=== PATIENT | female | born 1960 | race Caucasian/White ===

== ENCOUNTER → 2016-06-04 | Outpatient (CLI) | payer BC ==
[2016-05-10 16:00] VITALS: BP 124/75
[~2016-06-04] MED LIST: AMLO10TA4 PO; AMLO5TAB4 PO; AMOX875T PO; COLE1TAB2 PO; ESTR0.5T PO; ESTR26GE TD; FAMO20TA5 PO; FERR325T31 PO; GABA-586 PO; HYDR12.58 PO; IBUP-1060 PO; LANS30CA PO; LEVO750T31 PO; MTH/1CAP PO; PHEN-373 PO; POTA20TA12 PO; PREG75CA PO; SOTA150V PO; SOTA80TA PO
--- NOTE | 2016-06-04 18:11 | KCIC ---
Bilateral digital screening mammograms with CAD: HISTORY COMPARISON Comparison is made to previous studies dated 05/23/2015 and 05/05/2014. FINDINGS Breast density category B. The skin and nipples show no abnormalities. No abnormal lymph nodes are seen in the axilla. The breast parenchyma shows scattered fibroglandular density. There continue to be small nodular parenchymal densities in the right breast which are unchanged. There are no new dominant masses, suspicious calcifications or architectural distortions. Benign appearing calcifications are present IMPRESSION No evidence of malignancy. Recommend routine annual mammographic screening. This study was interpreted with the benefit of Computerized Aided Detection (CAD). Mammography is not 100% sensitive in detecting breast cancer. Therefore, a self breast exam and a clinical breast exam are very important. A negative mammogram does not negate a clinically suspicious finding and should not result in a delay in biopsying a clinically suspicious abnormality. BI-RADS category 2. Benign. This patient's information has been entered into a reminder system for the patient to be notified with the results of this examination and a target date for her next mammograms. Electronically signed by: Tita Palacios MD (Jun 04, 2016 18:09:53)
== END | disposition home or self-care (01) ==
LOC: KCIC MAMMO 16:56
PROVIDERS: ATTEND Surgery
DX: Z12.31 Encounter for screening mammogram for malignant neoplasm of breast (principal)
CPT/HCPCS: G0202; 77067

== ENCOUNTER → 2017-06-17 | Outpatient (CLI) | payer BC | END | disposition home or self-care (01) | LOC: KCIC MAMMO 16:54 | DX: Z12.31 Encounter for screening mammogram for malignant neoplasm of breast (principal) | CPT/HCPCS: 77063; 77067 ==

== ENCOUNTER 2017-07-11 13:48 | Emergency (ER) | payer BC ==
[2017-07-11 14:34] LABS: ADD MAN DIFF? NO
[2017-07-11 14:39] LABS: BASO # 0.1 x10^3/uL (0.0-0.2); BASO % 1 % (0-3); EOS # 0.1 x10^3/uL (0.0-0.7); EOS % 2 % (0-3); HEMATOCRIT 40.6 % (36.0-47.0); HEMOGLOBIN 13.8 g/dL (12.0-15.5); LYMPH # 2.1 x10^3/uL (1.0-4.8); LYMPH % 34 % (24-48); MEAN CORPUSCULAR HEMOGLOBIN 29 pg (25-35); MEAN CORPUSCULAR HGB CONC 34 g/dL (31-37); MEAN CORPUSCULAR VOLUME 86 fL (79-100); MONO # 0.4 x10^3/uL (0.0-1.1); MONO % 7 % (0-9); NEUT # 3.4 x10^3uL (1.8-7.7); NEUT % 56 % (31-73); PLATELET COUNT 196 x10^3/uL (140-400); RED CELL DISTRIBUTION WIDTH 13.7 % (11.5-14.5); WHITE BLOOD COUNT 6.1 x10^3/uL (4.0-11.0)
[2017-07-11 14:49] LABS: ANION GAP 9 (6-14); BLOOD UREA NITROGEN 14 mg/dL (7-20); CALCIUM 9.2 mg/dL (8.5-10.1); CARBON DIOXIDE 30 mmol/L (21-32); CHLORIDE 103 mmol/L (98-107); GFR 57.6; GLUCOSE 94 mg/dL (70-99); POTASSIUM 3.3 mmol/L (3.5-5.1); SODIUM 142 mmol/L (136-145)
[2017-07-11 14:55] LABS: ALBUMIN 3.5 g/dL (3.4-5.0); ALK PHOS 84 U/L (46-116); ALT (SGPT) 31 U/L (14-59); AST (SGOT) 21 U/L (15-37); DIRECT BILIRUBIN 0.1 mg/dL (0.0-0.2); LIPASE 201 U/L (73-393); TOTAL BILIRUBIN 0.3 mg/dL (0.2-1.0); TOTAL PROTEIN 7.7 g/dL (6.4-8.2)
[2017-07-11 14:58] LABS: TROPONINI < 0.017 ng/mL (0.000-0.055)
== END 2017-07-11 15:30 | disposition home or self-care (01) ==
LOC: ER 13:48
DX: R00.2 Palpitations (principal); R20.0 Anesthesia of skin; R20.2 Paresthesia of skin; J45.909 Unspecified asthma, uncomplicated; Z88.2 Allergy status to sulfonamides; Z90.49 Acquired absence of other specified parts of digestive tract; Z90.710 Acquired absence of both cervix and uterus; Z88.6 Allergy status to analgesic agent
CPT/HCPCS: 36415; 70450; 71045; 80048; 80076; 83690; 84484; 85025; 93005; 99285-25

== ENCOUNTER 2017-08-04 08:54 | Emergency (ER) | payer OTHER, BC | END 2017-08-04 10:23 | disposition home or self-care (01) | LOC: ER 08:54 | DX: S13.4XXA Sprain of ligaments of cervical spine, initial encounter (principal); J45.909 Unspecified asthma, uncomplicated; Z88.2 Allergy status to sulfonamides; Z90.49 Acquired absence of other specified parts of digestive tract; Z90.710 Acquired absence of both cervix and uterus; Z88.6 Allergy status to analgesic agent; Z88.5 Allergy status to narcotic agent; V43.62XA Car passenger injured in collision with other type car in traffic accident, initial encounter; Y93.89 Activity, other specified; Y92.410 Unspecified street and highway as the place of occurrence of the external cause; Y99.8 Other external cause status | CPT/HCPCS: 70450; 72125; 99284-25 ==

== ENCOUNTER → 2018-05-09 | Outpatient (CLI) | payer BC ==
[2017-08-04 10:15] VITALS: BP 165/91
[~2018-05-09] MED LIST changes: +CYCL10TA2 PO; +FERR-36 PO; -FERR325T31 PO; -GABA-586 PO; +GABA300C18 PO; +HYDR-3135 PO; -PHEN-373 PO; +PHEN-444 PO; +POTA10TA12 PO; -SOTA80TA PO; +SOTA80TA48 PO; +TRAM50TA PO
--- NOTE | 2018-05-09 15:56 | KCIC ---
3d digital tomography Bilateral History: Left breast pain Technique: Bilateral 3d digital tomographic views were obtained with [employer] and reviewed on a [employer] workstation. In addition, CAD - computer aided detection was utilized. Comparison: June 17, 2017. Findings: Breast Tissue Density B : The breast tissue is composed of mixed fatty and fibroglandular tissue. There is a small asymmetric tissue density in the far posterior left breast which is not seen by ultrasound. There is an abnormality in the medial left breast in the area of pain seen by ultrasound but not seen by mammogram. There are no suspicious microcalcifications or areas of architectural distortion. Impression: Subtle abnormalities ultrasound in the medial left breast corresponding to area of pain. Ultrasound guided biopsy recommended. Also further follow-up of the abnormality on mammogram laterally is recommended such as a 6 month follow-up left breast mammogram. These results were given to the patient person. BI-RADS Category 4: Suspicious. The patient will receive a letter with the results in the mail. The patient and the clinical service will be contacted by the radiology staff for further instructions. A mammogram does not have 100% sensitivity and therefore a negative imaging study should not delay further work up of a suspicious abnormality. Patient information is entered into the [facility] reminder system using [employer] with a target due date for the next screening mammogram. The patient will receive a reminder. "Our facility is accredited by the [employer] Mammography Program." Electronically signed by: Jw Sullivan III, MD (05/09/2018 3:52 PM) [id number]
--- NOTE | 2018-05-09 15:59 | KCIC ---
Left breast diagnostic ultrasound HISTORY: Left breast pain Sonographic examination was performed of the area of pain in the medial left breast as well as a area of asymmetric tissue density on mammogram in the lateral left breast There is a hypoechoic vague mass in the 9:00 left breast 6 centers nipple in the area of pain shooting 16 x 8 x 11 mm. This appears to be shadowing. There is no definite focal normality seen in the lateral left breast. IMPRESSION: Recommend a ultrasound-guided biopsy of the mass in the medial left breast and a 6 month follow-up left breast mammogram. Results discussed with the patient in person. The patient and the clinical service will be contacted by the radiology staff for further instructions. BI-RADS Category 4: Suspicious. Electronically signed by: Jw Sullivan III, MD (05/09/2018 3:55 PM) [id number]
== END | disposition home or self-care (01) ==
LOC: KCIC US 12:50
PROVIDERS: ATTEND Obstetrics & Gynecology
DX: N63.22 Unspecified lump in the left breast, upper inner quadrant (principal)
CPT/HCPCS: 76641; 77066; G0279; 77062

== ENCOUNTER → 2019-08-18 | Outpatient (CLI) | payer BC ==
[2017-08-04 10:15] VITALS: BP 165/91
--- NOTE | 2019-08-18 12:38 | KCIC ---
EXAM: Bilateral digital diagnostic mammogram with tomosynthesis; bilateral breast sonogram. HISTORY: 59-year-old female presents with right breast pain. TECHNIQUE: Full-field digital craniocaudal and mediolateral oblique 2D and 3D tomosynthesis images of both breasts are obtained for evaluation. Computer aided detection with [employer] software version 9.3 was applied. Sonographic imaging of both breasts targeted to the site of reported pain and abnormalities on the mammogram was also performed. COMPARISON: Sonogram dated 05/09/2018 and mammograms dated 2018, 06/17/2007, 05/08/2016 and 05/13/2015 BREAST PARENCHYMAL DENSITY: Level B - Scattered fibroglandular densities. FINDINGS: There is a mass within the posterior 3:00 position of the left breast. There is a small adjacent circumscribed nodule along the anterior and slightly lateral to the mass. There are nodular densities within the right breast which are stable compared to prior studies, allowing for differences in technique. There is a biopsy clip within the inferior medial left breast. There are few benign calcifications. Sonographic imaging of the right breast demonstrates no suspicious finding at the site of reported pain at the 9:00 position. Sonographic imaging of the left breast demonstrates a heterogeneous hypoechoic mass with irregular margins at the 3:00 position 10 cm from the nipple measuring 1.5 cm in maximum dimension. There is an adjacent oval circumscribed hypoechoic nodule measuring 6 mm. There is a lymph node with slightly thickened cortex within the left axilla measuring 1.6 cm. IMPRESSION: 1. Left breast mass at the posterior 3:00 position measuring approximately 1.5 cm sonographically. There is an adjacent 6 mm nodule which may be a satellite lesion or abnormal lymph node. Sonographic guided biopsy of both lesions is recommended for definitive diagnosis. 2. Nonspecific lymph node with slightly thickened cortex within the left axilla. Sonographic guided biopsy at the time of aforementioned left breast biopsy can also be performed. 3. No suspicious and sonographic or mammographic finding within the right breast. There is stable areas of nodularity, allowing for differences in imaging technique. 4. BI-RADS Category 5: Highly suggestive of malignancy. Significant a biopsy of the left breast and left axilla is recommended, as described above. These findings and recommendations were discussed with the patient and were communicated to the referring physician office at the time of the exam. If your mammogram demonstrates that you have dense breast tissue, which could hide abnormalities, and if you have other risk factors for breast cancer that have been identified, you might benefit from supplemental screening tests that may be suggested by your ordering physician. Dense breast tissue, in and of itself, is a relatively common condition. This information is not provided to cause undue concern, but rather to raise your awareness and to promote discussion with your physician regarding the presence of other risk factors, in addition to dense breast tissue. A report of your mammography results will be sent to you and your physician. You should contact your physician if you have any questions or concerns regarding this report. Mammography is a sensitive method for finding small breast cancers, but it does not detect them all and is not a substitute for careful clinical examination. A negative mammogram does not negate a clinically suspicious finding and should not result in delay in biopsying a clinically suspicious abnormality. PQRS compliance statement - Patient information was entered into a reminder system with a target due date for the next mammogram. "Our facility is accredited by the [employer] Mammography Program." Electronically signed by: Richa Martins MD (08/18/2019 12:35 PM) [facility]
== END | disposition home or self-care (01) ==
LOC: KCIC MAMMO 10:27
PROVIDERS: ATTEND Obstetrics & Gynecology
DX: N63.23 Unspecified lump in the left breast, lower outer quadrant (principal)
CPT/HCPCS: 76641; 77066; G0279; 77062

== ENCOUNTER → 2020-01-21 | Outpatient (CLI) | payer BC ==
[2017-08-04 10:15] VITALS: BP 165/91
[~2020-01-21] MED LIST changes: +PREG-9 PO; -PREG75CA PO
--- NOTE | 2020-01-21 11:37 | KCIC ---
EXAM: Left breast diagnostic mammogram with tomosynthesis; left breast sonogram. HISTORY: 59-year-old female presents for follow-up evaluation status post left breast biopsy. The pathology findings associated with the biopsy are presumed nonconcordant with the imaging findings. The patient is scheduled for lumpectomy. TECHNIQUE: Full-field digital craniocaudal and mediolateral oblique 2D and 3D tomosynthesis images of the left breast are obtained for evaluation. Computer aided detection with [employer] software version 9.3 was applied. Sonographic imaging of the left breast including all 4 quadrants and the retroareolar joint was performed. COMPARISON: Mammogram and sonogram dated 08/18/2019 and 05/09/2018. BREAST PARENCHYMAL DENSITY: Level B - Scattered fibroglandular densities. FINDINGS: There has been continued interval increase in a lobulated mass within the posterior 3:00 position of the left breast. There is now contains a biopsy clip and measures approximately 2.3 cm in maximum dimension mammographically, compared to a measurement of approximately 1.3 cm on the mammogram dated 05/09/2018 1.7 cm on the mammogram dated 08/18/2019. There is stable adjacent small circumscribed nodular density measuring 8 mm mammographically. There is no new suspicious calcification. Sonographic imaging of the left breast demonstrates interval increase in a lobulated hypoechoic mass with indistinct margins at the 3:00 position 10 cm from the nipple. This measures 1.5 cm in maximum dimension sonographically and corresponds with the mammographic lesion described above. This previously measured 1.2 cm sonographically. There is a stable adjacent well-circumscribed hypoechoic lesion measuring 6 mm. The sonographic appearance favors a benign etiology such as a cyst or fibroadenoma. No new lesion is seen within the left breast and there is no suspicious left axillary lymph node. IMPRESSION: 1. Continued interval increase in the size of a mass within the posterior 3:00 position of the right breast at the site of prior biopsy. The reported benign pathology findings are presumed nonconcordant based on the sonographic appearance and interval change in size. The patient is scheduled for surgical excision. 2. Stable small cyst or fibroadenoma within the posterior 3:00 position. 3. BI-RADS Category 4: Suspicious abnormality. Surgical excision of the lesion at the 3:00 position is recommended, presuming nonconcordant biopsy pathology findings. The patient was notified of these findings and reports that surgical excision will be scheduled if there is a suspicious change in lesion size on this exam. If your mammogram demonstrates that you have dense breast tissue, which could hide abnormalities, and if you have other risk factors for breast cancer that have been identified, you might benefit from supplemental screening tests that may be suggested by your ordering physician. Dense breast tissue, in and of itself, is a relatively common condition. This information is not provided to cause undue concern, but rather to raise your awareness and to promote discussion with your physician regarding the presence of other risk factors, in addition to dense breast tissue. A report of your mammography results will be sent to you and your physician. You should contact your physician if you have any questions or concerns regarding this report. Mammography is a sensitive method for finding small breast cancers, but it does not detect them all and is not a substitute for careful clinical examination. A negative mammogram does not negate a clinically suspicious finding and should not result in delay in biopsying a clinically suspicious abnormality. PQRS compliance statement - Patient information was entered into a reminder system with a target due date for the next mammogram. "Our facility is accredited by the [employer] Mammography Program." Electronically signed by: Richa Martins MD (01/21/2020 11:35 AM) [facility]
== END | disposition home or self-care (01) ==
LOC: KCIC MAMMO 09:46
PROVIDERS: ATTEND Physician Assistant
DX: R92.2 Inconclusive mammogram (principal); N63.21 Unspecified lump in the left breast, upper outer quadrant
CPT/HCPCS: 76641; 77065; G0279; 77061

== ENCOUNTER → 2020-06-15 | Outpatient (CLI) | payer BC ==
[2017-08-04 10:15] VITALS: BP 165/91
--- NOTE | 2020-06-16 13:23 | RAD ---
DATE: 06/15/2020 EXAM: MAMMO FREDDY SKYLER BILAT, BREAST LEFT HISTORY: Left breast mass. COMPARISON: Left breast mammogram and ultrasound 01/21/2020, bilateral mammogram and breast ultrasound 08/18/2019, mammogram and ultrasound 05/09/2018, mammogram 06/23/2018. This study was interpreted with the benefit of Computerized Aided Detection (CAD). Breast Density: SCATTERED The breast parenchyma shows scattered fibroglandular densities. Breast parenchyma level B. FINDINGS: There is a biopsy clip in a lobulated mass in the left breast at 3:00 posterior depth. The mass measures 2.1 x 1.6 cm on mammogram, unchanged. Additional biopsy clip in the lower inner left breast. There is no new mass, suspicious calcification, or architectural distortion in either breast. ULTRASOUND: The hypoechoic, lobulated mass with indistinct margins at 3:00 10 cm from the nipple is overall similar in appearance, measuring 1.5 x 1.4 x 1.3 cm. This may be slightly larger than the prior exam, although differences could be due to interobserver variability. A second ovoid, circumscribed hypoechoic mass measuring 6 x 6 x 3 mm is unchanged. No axillary lymphadenopathy. IMPRESSION: 1. Unchanged to slightly increased size of previously biopsied left breast mass at 3:00 posterior depth. This remain suspicious and the patient is scheduled for surgical excision. 2. Unchanged adjacent 6 mm hypoechoic mass at 3:00. This has been stable since at least 05/09/2018. BI-RADS CATEGORY: BI-RADS 4-SUSPICIOUS. Surgical excision recommended. RECOMMENDED FOLLOW-UP: 6M 6 MONTH FOLLOW-UP PQRS compliance statement: Patient information was entered into a reminder system with a target due date for the next mammogram. Mammography is a sensitive method for finding small breast cancers, but it does not detect them all and is not a substitute for careful clinical examination. A negative mammogram does not negate a clinically suspicious finding and should not result in delay in biopsying a clinically suspicious abnormality. "Our facility is accredited by the [employer] Mammography Program." BI-RADS 4 -- suspicious abnormality, biopsy recommended MTDD
== END ==
LOC: MAMMO 08:23
PROVIDERS: ATTEND Physician Assistant
DX: D48.62 Neoplasm of uncertain behavior of left breast (principal); N63.20 Unspecified lump in the left breast, unspecified quadrant
CPT/HCPCS: 76641; 77066; G0279; 77062